=== PATIENT | female | born 1975 ===

== ENCOUNTER 2024-10-09 06:53 | Day surgery (SDC) | payer OTHER ==
--- NOTE | 2024-10-08 16:47 | EKG ---
Test Date: 2024-10-07 Test Time: 11:04:37 House Mother: RASHAWN MEASUREMENT RESULTS: Intervals: Rate: 69 ND: 156 QRSD: 70 QT: 402 QTc: 430 [place]: P: 43 ND: 156 QRS: 49 T: 60 INTERPRETIVE STATEMENTS: Normal sinus rhythm Normal ECG Compared to ECG 10/02/2014 06:19:20 No significant changes Electronically Signed On 10-08-24 16:45:06 LOGISTICS SOLUTION MANAGER by Tobi Ge
[2024-10-09] MEDS: Ringers Lactate 1,000 ML IV ONE (07:15)
[2024-10-09] MEDS: ACETAMINOPHEN 500 MG TAB ONE (08:11)
[2024-10-09] MEDS ORDERED: MIDAZOLAM HCL 2 MG/2 ML INJ ONE (08:14)
[2024-10-09] MEDS ORDERED: ONDANSETRON 4 MG/2 ML VIAL ONE (08:14)
[2024-10-09] MEDS ORDERED: propofoL 200 MG/20 ML VIAL IV ONE (08:14)
[2024-10-09] MEDS ORDERED: LIDOCAINE 1% MPF 5 ML VIAL ONE (08:14)
[2024-10-09] MEDS ORDERED: OXYMETAZOLINE HCL 0.05% 30ML NAS ONE (09:15)
[2024-10-09] MEDS: OFLOXACIN OPH 0.3%-5 ML BTL ONE (09:36)
--- NOTE | 2024-10-09 10:02 | P.OP ---
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 Light shikha serous middle ear effusion with tympanic membrane demonstrating atrophic flaccid reaction. Indication: The patient had persistent symptoms and abnormal findings in spite o f good medical management. Details of operation: The patient was brought to the operating room and placed under general anesthesia via laryngeal mask airway. The left ear was visualized under the operating microscope with assistance of an ear speculum. Cerumen was removed from the canal using a wire curette. The eardrum was severely retracted with atrophic flaccid membrane. A myringotomy incision was made in the anterior-inferior quadrant and light shikha serous fluid was aspirated from the middle ear space. A Goode T tube was positioned across the incision using an alligator forcep and pick. Due to the flaccid nature of the tympanic membrane in combination with a narrow and curved ear canal, placement was more challenging than typical. A similar procedure was performed on the right side. Cerumen was removed from the canal using a wire curette. The eardrum was severely retracted with an atrophic flaccid membrane. A myringotomy incision was made in the anterior- inferior quadrant and light shikha serous fluid was aspirated from the middle ear space. A Goode T tube was positioned across the incision using an alligator forcep and pick. Again due to the narrow and curved ear canal, placement was more challenging than typical with multiple attempts required to successfully place the tube. The procedure was concluded and the patient was awakened from anesthesia and transported to the recovery room in stable condition. Disposition the patient will be discharged home later today in the care of their family and follow-up with Dr. Todd's office in approximately 1 to 2 weeks. Postoperative plan of care includes routine monitoring in the clinic every [address] Todd or her associates. If the patient develops drainage from the ears, they can be treated with office visit for suctioning and/or prescription of antibiotic drops or combination steroid antibiotic drops. The tubes are expected to extrude within a 2-year timeframe. If not spontaneously extruded, removal of the tubes would be discussed with the family.
[2024-10-09 10:07] VITALS: O2SAT 100
[2024-10-09 12:57] VITALS: BP 98/62; TEMP 97.6
== END 2024-10-09 11:00 | disposition home or self-care (01) ==
LOC: OR 06:53
PROVIDERS: ATTEND Otolaryngology
PROC: 099570Z Drainage of Right Middle Ear with Drainage Device, Via Natural or Artificial Opening (ICD-10-PCS; 2024-10-09)
PROC: 099670Z Drainage of Left Middle Ear with Drainage Device, Via Natural or Artificial Opening (ICD-10-PCS; principal; 2024-10-09 08:30)
DX: H65.03 Acute serous otitis media, bilateral (principal); H90.2 Conductive hearing loss, unspecified; T70.0XXA Otitic barotrauma, initial encounter; H73.813 Atrophic flaccid tympanic membrane, bilateral
CPT/HCPCS: 93005; 69436; J2704; J2003; J2250; J2405; J7120